=== PATIENT | male | born 1960 | race Caucasian/White ===

== ENCOUNTER 2024-01-19 18:14 | Emergency (ER) | payer OTHER, SELFPAY ==
[2024-01-19 18:19] VITALS: BP 131/79
--- NOTE | 2024-01-19 19:00 | ED.GENMED ---
History of Present Illness
General
Chief Complaint: Abdominal Pain
Source: patient
Exam Limitations: none
Time Seen by Provider: 01/19/24 18:34
History of Present Illness
History of Present Illness:
This is a 63 year old male that comes in with abd and thigh pain. States that he is very intuned to his body. States that in the past week he started with pain in the left inner thigh. States that he is unable to do his work outs due to the pain.
States that the past couple of nights his pain has gotten worse that he is not sleeping. States that he also travels a lot and flies back and forth to [place]. States that he has a dull lower abd pain, that even when he went to sit up he has pain.
Denies any fever, chills, chest pain, SOB, nausea, vomiting, diarrhea, headache, dizziness, urinary burning.
Past History
Past History
ED Past Medical History: Negative Asthma, HTN, Hypercholesterolemia or NIDDM
ED Past Surgical History: Orthopedic (Right Rotator cuff), Tonsilectomy and Urological (Testicular torsion)
Social History
Tobacco: Non-smoker
Alcohol: None
Personal:
Living: with family
Employment: Employed
Review of Systems
Review of Systems
All Other Systems: ROS reviewed and negative except as documented in HPI and ROS
Constitutional: Reports no symptoms; Denies fever or chills
EENT: Reports no symptoms
Respiratory: Reports no symptoms; Denies cough or trouble breathing
Cardiac: Reports no symptoms; Denies chest pain
ABD/GI: Reports abdominal pain (Suprapubic area); Denies nausea, vomiting or diarrhea
: Reports no symptoms; Denies dysuria, frequency or urgency
Musculoskeletal: Reports other (Left inner thigh pain)
Skin: Reports no symptoms
Neurological: Reports no symptoms; Denies dizzy or headache
Psychiatric: Reports no symptoms
Phy Exam
General Physical Exam
General Presentation: well appearing and no apparent distress
General age: appears stated age
General Skin: warm and dry
General Habitus: normal
General Mental: alert
General Hydration: appears well hydrated
ENT Exam
ENT Exam: TM's normal, pharynx normal and neck supple
Eye Exam
Eye Exam: EOMI
Cardiovascular Exam
Cardiovascular Exam: regular rate/rhythm, no edema, no murmur and normal peripheral pulses
Pulmonary Exam
Pulmonary Exam: lungs clear, no respiratory distress, no rales, chest non tender, no crackles, no rhonchi, no wheezing and no cough
Gastrointestinal Exam
Gastrointestinal Exam: normal bowel sounds, non tender, soft, no organomegaly, no pulsatile mass and non distended
Musculoskeletal Exam
Musculoskeletal Exam: full ROM, no edema and other (Negative for any redness or swelling of the left leg. Negative for any tenderness left medial thigh with palpation)
Skin Exam
Skin Exam: normal color, warm/dry, no rash and no petechia
Psychiatric Exam
Psychiatric Exam: normal mood/affect
Course
Orders/Labs/Results
Orders:
Orders
01/19/24 18:59
Iohexol [Omnipaque] See Protocol PO NOW STA
US Legs, Left [US Periph Venous LOWER Ext LT] Urgent
Comment:
Reason For Exam: Left medial thigh pain
01/19/24 19:00
CT Abd/pel W Iv And Oral Contr Urgent
Comment:
Reason For Exam: Left lower abd pain to suprpubic pain
0.9% Sodium Chloride 500 ml [Nss] 500 ml IV BOLUS
01/19/24 19:13
Complete Blood Count/With Diff Urgent
Comprehensive Metabolic Panel Urgent
Abnormal Lab Results
01/19/24
19:13
WBC 4.2 L 10^3/uL
(4.8-10.8)
RBC 4.56 L 10^6/uL
(4.70-6.10)
01/19/24 19:13
01/19/24 19:13
Vital Signs
Initial and Last Documented VS:
Initial Vital Signs
Temp Pulse Resp BP Pulse Ox
97.8 F 56 16 131/79 100
01/19/24 18:19 01/19/24 18:19 01/19/24 18:19 01/19/24 18:19 01/19/24 18:19
Last Documented Vital Signs
Temp Pulse Resp BP Pulse Ox
97.8 F 58 19 131/78 99
01/19/24 18:19 01/19/24 22:27 01/19/24 22:27 01/19/24 22:27 01/19/24 22:27
MDM/Problems Addressed
Differential Diagnosis Includes:
UTI, Hernia, DVT
MDM/Problems Addressed:
This is a 63 year old male that comes in with c/o left upper thigh pain and dull pain in the suprapubic area. States that he is very in-tuned to his body.
Will get labs, US and CT scan. IV fluids and urine.
Chronic conditions affecting care:
NA
Acute Exacerbation and/or Progression of Chronic Illness:
NA
*Radiology
Radiology exam reviewed: radiology read reviewed (US-No evidence of deep venous thrombosis of the left lower extremity. CT scan-No findings to suggest inguinal hernia bilaterally. Symmetric bilateral renal excretion. Moderate volume widespread
colonic stool. Limited evaluation of intertinal tract as a result of lack of oral contrast opacification) and all reviewed NAD by ED Provider (CT cont- of large bowel distal to the transverse colon. NO intestinal obstruction or free air. Small
simple left renal cyst. )
*Pulse Oximetry
Patient hypoxic: no
*EKG
Interpreted by ED Provider?: NA
Rate: EKG- N/A
*Logistics Team Lead Interpretation
Rate: Logistics Team Lead- N/A
*Critical Care Note
Total Time (30-74mins, 75-104mins- exclusive of procedures): Not Applicable
ED Attending Note
-
Portions of this chart may have been created with voice recognition software.� Occasional wrong word or��sound alike� substitutions may have occurred due to the inherent limitations of voice recognition software.
Discharge Plan
Departure
Patient Disposition: Home (Routine Discharge)
Date of Disposition: 01/19/24
Time of Disposition: 22:45
Patient with high blood pressure during this ER visit?: Yes
Condition: Good
Covid-19: Not Applicable
Discharge Problem:
Musculoskeletal pain, Abdominal pain
Instructions: Abdominal Pain, BLOOD PRESSURE, Musculoskeletal Pain
Referrals:
NONE,* [Family Provider] -
Activity Restrictions/Additional Instructions:
As discussed, your blood work is normal along with your Ultrasound and CT scan. This may just all be musculoskeletal pain. Please use Tylenol or Ibuprofen for pain. Follow up with the family doctor for recheck. IF YOU HAVE ANY OTHER CONCERNS PLEASE
RETURN TO THE EMERGENCY ROOM.
Interventions
Interventions:
*Risk Screen - Suicide Last Done: 01/19/24 19:08
*General Assessment Last Done: 01/19/24 19:08
*Neglect/Abuse Screening Last Done: 01/19/24 19:08
*ED COVID-19 Vaccine History Last Done: 01/19/24 19:08
OV-Jlipva-Woemazwmub Assessment Last Done: 01/19/24 19:08
ED-Musculoskeletal Assessment Last Done: 01/19/24 19:08
Discharge Date and Time
Print Language: LATVIAN
[2024-01-19 19:08] VITALS: BMI 23.1
[2024-01-19] MEDS: OMNIPAQUE 50 ML PO (19:09)
[2024-01-19] MEDS: NSS 500 IV (19:10)
[2024-01-19 19:25] LABS: % Basophils 0.2 % (0-2); % Eosinophils 4.5 % (0-6); % Immature Granulocytes 0.2 % (0-0.5); % Lymphocytes 36.2 % (20.5-51.1); % Monocytes 8.5 % (1.7-9.3); % Neutrophils 50.4 % (42.2-75.2); Absolute Eosinophils 0.2 10^3/uL (0-0.7); Absolute Lymphocytes 1.5 10^3/uL (1.2-3.4); Absolute Monocytes 0.4 10^3/uL (0.1-0.6); Absolute Neutrophils 2.1 10^3/uL (1.4-6.5); Hematocrit 39.1 % (39.0-52.0); Hemoglobin 13.7 g/dL (13.0-18.0); Mean Corpuscular Volume 85.7 fL (80.0-94.0); Mean Platelet Volume 9.6 fL (7.4-10.4); Nucleated Red Blood Cells % 0 % (-); Platelet Count 186 10^3/uL (130-400); Red Blood Cell Count 4.56 10^6/uL (4.70-6.10); Red Cell Dist. Width 12.9 % (11.5-14.5); White Blood Cell Count 4.2 10^3/uL (4.8-10.8)
[2024-01-19 19:41] LABS: ALT (SGPT) 21 U/L (0-50); AST (SGOT) 29 U/L (17-59); Albumin 4.4 g/dl (3.5-5.0); Alkaline Phosphatase 92 U/L (38-126); Blood Urea Nitrogen 15 mg/dl (9-20); Calcium 9.7 mg/dl (8.4-10.2); Carbon Dioxide 28 mmol/L (22-30); Chloride 103 mmol/L (98-107); Estimated Creatinine Clearance 93 ml/min; Glucose 82 mg/dl (70-99); Potassium 4.1 mmol/L (3.5-5.1); Sodium 137 mmol/L (135-145); Total Protein 7.2 g/dl (6.3-8.2); eGFR > 60.00
[2024-01-19 22:27] VITALS: BP 131/78
== END 2024-01-19 22:51 | disposition home or self-care (01) ==
LOC: EMR 18:14
PROVIDERS: Clinical Nurse Specialist Family Health; EMERGENCY PHYSICIAN Emergency Medicine
DX: R10.32 Left lower quadrant pain (principal); M79.652 Pain in left thigh; M79.18 Myalgia, other site; N28.1 Cyst of kidney, acquired; R03.0 Elevated blood-pressure reading, without diagnosis of hypertension; Z91.018 Allergy to other foods
CPT/HCPCS: 99285; 96360; 74177; 80053; 85025; 93971; Q9967

== ENCOUNTER 2025-04-01 04:19 | Emergency (ER) | payer MEDICARE, OTHER, SELFPAY ==
[2025-04-01 04:46] VITALS: BP 121/72
--- NOTE | 2025-04-01 07:58 | ED.GENMED ---
History of Present Illness
General
Chief Complaint: Musculo-Skeletal Complaint
Time Seen by Provider: 04/01/25 07:37
History of Present Illness
History of Present Illness:
65 yo male presents to the Emergency Department for evaluation of neck pain. States he had a similar bout of nontraumatic pain about 3 to 4 months ago that took 'several weeks' to resolve. States over the past 2 days he has had severe pain that
prevents him from sleeping. Denies any falls or injuries. No upper extremity paresthesias or weakness. Denies any Benefit from svfj-rvl-vbaubca medication
Past History
Past History
ED Past Medical History: Negative Asthma, HTN, Hypercholesterolemia or NIDDM
ED Past Surgical History: Orthopedic (Right Rotator cuff), Tonsilectomy and Urological (Testicular torsion)
Social History
Tobacco: Non-smoker
Alcohol: None
Personal:
Living: with family
Employment: Employed
Review of Systems
Review of Systems
Allergies reviewed?: Yes
All Other Systems: ROS reviewed and negative except as documented in HPI and ROS
Phy Exam
Physical Exam
Physical Exam:
GEN: Well appearing, NAD, WDWN
HEENT: Oral mucosa moist, no scleral icterus
Cardiac: Regular rate
Lung: No respiratory distress, no tachypnea
MSK: No gross deformity or injuries, no midline cervical spine tenderness, significant muscular rigidity palpated to bilateral paraspinous cervical musculature. Range of motion limited secondary to pain.
Skin: Good color, no pallor or jaundice, no rashes
Neuro: AO x3, moves all extremities freely, bilateral upper extremity strength 5 out of 5 in all damian, no paresthesias or sensory level deficit
Psych: Calm, cooperative
Course
Orders/Labs/Results
Orders:
Orders
04/01/25 07:58
Acetaminophen [Tylenol] 1,000 mg PO NOW STA
Ketorolac [Toradol] 30 mg IM NOW STA
Vital Signs
Initial and Last Documented VS:
Initial Vital Signs
Temp Pulse Resp BP Pulse Ox
97.9 F 60 20 121/72 99
04/01/25 04:46 04/01/25 04:46 04/01/25 04:46 04/01/25 04:46 04/01/25 04:46
Last Documented Vital Signs
Temp Pulse Resp BP Pulse Ox
97.9 F 60 20 121/72 99
04/01/25 04:46 04/01/25 04:46 04/01/25 04:46 04/01/25 04:46 04/01/25 07:58
MDM/Problems Addressed
MDM/Problems Addressed:
Likely musculoskeletal etiology, no radicular symptoms suggestive of disc herniation, will treat with steroids and opiates for pain, recommend primary care follow-up to discuss MRI if prudent
*Pulse Oximetry
SaO2: 99
Oxygen Mode of Delivery: Room air
Patient hypoxic: no
*Critical Care Note
Total Time (30-74mins, 75-104mins- exclusive of procedures): Not Applicable
ED Attending Note
-
Portions of this chart may have been created with voice recognition software.� Occasional wrong word or��sound alike� substitutions may have occurred due to the inherent limitations of voice recognition software.
Discharge Plan
Departure
Patient Disposition: Home (Routine Discharge)
Date of Disposition: 04/01/25
Time of Disposition: 09:05
Patient with high blood pressure during this ER visit?: No
Discharge Problem:
Cervical paraspinal muscle spasm
Instructions: Neck pain - ED (DC)
Prescriptions:
New
methylprednisolone [Medrol (Duran)] 4 mg tablets,dose pack
See Rx Instructions .ROUTE .COMPLEX Qty: 21 0RF
Rx Instructions:
orally per package directions
oxycodone-acetaminophen [Percocet] 5-325 mg tablet
1 tab PO Q6HPRN PRN (Reason: pain) Qty: 10 0RF
Referrals:
NONE,* [Family Provider, Internal Medicine]
Activity Restrictions/Additional Instructions:
Follow-up with your primary doctor to discuss the benefit of an MRI to further evaluate your recurrent neck pain
Interventions
Interventions:
*Risk Screen - Suicide Last Done: 04/01/25 04:46
*General Assessment Last Done: 04/01/25 04:46
*Neglect/Abuse Screening Last Done: 04/01/25 04:46
*ED- Fall Risk Assessment Last Done: 04/01/25 04:46
*ED COVID-19 Vaccine History Last Done: 04/01/25 04:46
*ED Influenza Vaccine History Last Done: 04/01/25 04:46
*Nursing Disposition Last Done: 04/01/25 09:27
ED-Musculoskeletal Assessment Last Done: 04/01/25 08:14
Discharge Date and Time
Discharge Date/Time: 04/01/25 09:27
Print Language: SRI LANKAN
[2025-04-01] MEDS: TYLENOL 1000 MG PO (08:07)
[2025-04-01] MEDS: TORADOL 30 MG IM (08:08)
== END 2025-04-01 09:27 | disposition home or self-care (01) ==
LOC: EMR 04:19
PROVIDERS: EMERGENCY PHYSICIAN Emergency Medicine
DX: M62.838 Other muscle spasm (principal)
CPT/HCPCS: 99282; 96372